=== PATIENT | male | born 1995 | race Caucasian/White ===

== ENCOUNTER 2022-05-28 19:27 | Emergency (ER) | payer SELFPAY ==
--- NOTE | ~2022-05-28 | XR_ITS ---
EXAMINATION: XR CHEST CLINICAL INFORMATION: Chest pain COMPARISON: None TECHNIQUE: Frontal view of the chest was obtained. FINDINGS: No significant abnormality is noted involving the heart, lungs, mediastinum, bony thorax or soft tissues. XR/XR chest 1V IMPRESSION: Unremarkable examination.
--- NOTE | 2022-05-28 19:39 | ECG_ITS ---
Test Reason : CHEST PAIN Blood Pressure : / mmHG Vent. Rate : 060 BPM Atrial Rate : 060 BPM P-R Int : 112 ms QRS Dur : 078 ms QT Int : 398 ms P-R-T Axes : 051 006 020 degrees QTc Int : 398 ms Normal sinus rhythm Normal ECG No previous ECGs available Referred By: Generic ED Physician Electronically Signed By:HERIBERTO VASQUEZ
[2022-05-28 20:51] VITALS: BP 136/84; PULSE 64; RESP 18; TEMP 37.2; O2SAT 98; BMI 21.8
[2022-05-28 22:43] LABS: MANUAL DIFF FLAG NO
[2022-05-28 22:45] LABS: Basophils Percent Auto 0.3 % (0-2); Eosinophils Percent Auto 0.2 % (0-4); Hematocrit 48.6 % (42.0-52.0); Imm Gran Abs Auto 0.04 X10*3/uL (0.00-0.03); Imm Gran Pct Auto 0.5 % (0.0-0.4); Lymphocytes Absolute Auto 1.7 X10*3/uL (1.2-4.9); Mean Corpuscular HGB Conc 32.9 g/dl (31.0-36.0); Mean Corpuscular Volume 85.1 fL (80.0-98.0); Mean Platelet Volume 10.5 fL (9.4-12.4); Monocytes Absolute Auto 0.6 X10*3/uL (0.1-1.2); Monocytes Percent Auto 6.5 % (2-11); Neutrophils Absolute Auto 6.3 x10*3/uL (2.0-8.3); Neutrophils Percent Auto 72.5 % (45-73); Platelet Count 247 X10*3/uL (160-400); Red Blood Count 5.71 X10*6/uL (4.60-5.80); Red Cell Distribution Width 12.7 % (11.0-16.0); White Blood Count 8.6 X10*3/uL (4.8-10.8)
[2022-05-28 22:57] LABS: Anion Gap 16 (12-20); Blood Urea Nitrogen 17 mg/dL (9-16); Calcium 10.3 mg/dL (8.4-10.2); Carbon Dioxide 27 mmol/L (22-29); Chloride 103 mmol/L (96-108); Creatinine Clr Calc Pharmacy 104.8; Estimated Glomerular Filt Rate > 60; Glucose Random 102 mg/dL (60-115); Potassium 4.3 mmol/L (3.3-5.1); Sodium 142 mmol/L (135-145)
[2022-05-28 23:03] LABS: COVID-19 Test Negative (Negative)
[2022-05-28 23:05] LABS: Troponin-I High Sensitivity < 3.5 ng/L (<3.5-35.0)
--- NOTE | 2022-05-29 00:40 | ED.CHESTPAIN ---
HPI - Chest Pain General Chief Complaint: Chest Pain Stated Complaint: chest pain, left arm tingling Time Seen by Provider: 05/29/22 00:39 Source: patient Mode of arrival: ambulatory Limitations: no limitations History of Present Illness HPI narrative: 26 y/o male with no pertinent PMHx presenting with left-sided anterior chest pain x 1 day. The patient reports that he woke up this morning with point tenderness in the area of his left chest. He tells me that he was partying over the weekend and was smoking a lot, so he was concerned that this may be associated. Smokes alot of vapes . He denies any difficulty breathing, cough, chest tightness. No history of asthma. He states that the pain is mostly improved at this time. Denies any recent sick contacts. No recent heavy lifting or injuries to the area. Denies any additional medical complaints at this time including abdominal pain, nausea, vomiting, dizziness, headache, back pain. No hx of sudden cardiac in family or significant cardiac hx Related Data Allergies Allergy/AdvReac Type Severity Reaction Status Date / Time amoxicillin Allergy Intermediate Shortness Verified 05/28/22 20:50 of Breath Review of Systems Review of Systems: Constitutional : No Weight loss, No Fever, No Chills, No Fatigue, No Malaise ENT/Mouth : No sore throat, No Rhinorrhea Eyes: No Eye Pain, No Swelling, No Redness Cardiovascular : + Chest Pain, No SOB, No Dyspnea on Exertion, No Orthopnea, No Edema, No Palpitations Respiratory : No Cough, No Sputum, No Wheezing Gastrointestinal : No Nausea, No Vomiting, No Diarrhea, No Constipation, No abdominal Pain, No Hematochezia, No Melena Genitourinary : No Dysuria, No Urinary Frequency, No Hematuria, Musculoskeletal : No joint pain, No Myalgias, No Joint Swelling Skin : No Skin Lesions, No rash Neuro : No Weakness, No Numbness, No Dizziness, No Headache Psych : No Anxiety/Panic, No Depression All other systems reviewed and are negative Yes all other systems are reviewed and are negative [facility] Past Medical History Attestation statement: The following information was validated with the patient. Source: old records reviewed and nursing notes reviewed Physical Exam Vital Signs: Vital Signs: Last Vital Signs Temp 98.9 F 05/28/22 20:51 Pulse 64 05/28/22 20:51 Resp 18 05/28/22 20:51 BP 136/84 05/28/22 20:51 Pulse Ox 98 05/28/22 20:51 O2 Del Method 05/28/22 20:51 BMI result Body Mass Index 21.8 vss Appearance: Alert.? Oriented X3.? No acute distress.?Patient appears well. Head: Normocephalic, atraumatic, no step-offs or deformities Eyes: Pupils equal, round and reactive to light.? Neck: Normal inspection.? Neck supple.? CVS: Normal heart rate and rhythm.? Pulses normal.? Respiratory: No respiratory distress.? Breath sounds normal.? Abdomen: Soft and nontender.? Skin: Skin warm and dry.? Normal skin color.? Normal skin turgor.? Extremities: No lower extremity edema.? No calf ttp, negative Abdirizak bilaterally. 5/5 strength to bilateral upper and lower extremities Neuro: Oriented X 3.? No motor deficit.? No sensory deficit. Course Reevaluation(s) Reevaluation #1: CBC within normal limits. Chemistry with no acute findings. Troponin negative, EKG nonischemic. Chest x-ray within normal limits. COVID negative. D-dimer pending at this time. I suspect patient will be discharged home with Cardiology and PCP follow-up. Patient appears well and in no acute distress. Tells me that at this time is pain has subsided. Time: 00:47 Reevaluation #2: D-dimer negative, unlikely PE. At this time patient will be discharged home advised to return with new or worsening symptoms, advised to follow-up with PCP and Cardiology. This time I feel comfortable discharge home with prompt PCP and cardiology follow-up, educated on worrisome signs and symptoms and when to return. Time: 01:19 MDM - Chest Pain MDM Narrative Medical decision making narrative: 0040 26-year-old male presents to the emergency department complaints of left-sided anterior chest wall pain, worse with deep inspiration times 1 day. Physical examination benign. Patient without risk factors for PE, low suspicion for PE. However will obtain D-dimer. Unlikely ACS again patient without risk factors HEART score 0. Likely noncardiac related chest pain or anxiety.. Plan basic labs, EKG, chest x-ray, troponin, D-dimer. Medical Records Data Attestation: I reviewed the patient's medical records. Lab Data Attestation: I reviewed the patient's lab results. Result diagrams: 05/28/22 22:26 05/28/22 22:27 Labs: Lab Results 05/28/22 05/28/22 05/28/22 Range/Units 22:26 22:26 22:26 WBC 8.6 (4.8-10.8) X10*3/uL RBC 5.71 (4.60-5.80) X10*6/uL Hgb 16.0 (14.0-18.0) g/dl Hct 48.6 (42.0-52.0) % MCV 85.1 (80.0-98.0) fL MCH 28.0 (27.0-33.0) pg MCHC 32.9 (31.0-36.0) g/dl RDW 12.7 (11.0-16.0) % Plt Count 247 (160-400) X10*3/uL MPV 10.5 (9.4-12.4) fL Immature Gran % (Auto) 0.5 H (0.0-0.4) % Neut % (Auto) 72.5 (45-73) % Lymph % (Auto) 20.0 (20-40) % [place] % (Auto) 6.5 (2-11) % Eos % (Auto) 0.2 (0-4) % Baso % (Auto) 0.3 (0-2) % Lymph # (Auto) 1.7 (1.2-4.9) X10*3/uL [place] # (Auto) 0.6 (0.1-1.2) X10*3/uL Eos # (Auto) 0.0 (0.0-0.4) X10*3/uL Baso # (Auto) 0.0 (0.0-0.2) X10*3/uL Abs Immat Gran (auto) 0.04 H (0.00-0.03) X10*3/uL Absolute Neuts (auto) 6.3 (2.0-8.3) x10*3/uL Absolute Nucleated RBC 0.000 (0.0-0.012) X10*3/uL Nucleated RBC % (auto) 0.0 (0.0-0.2) /100WBC D-Dimer High Sensitivty NG/ML Sodium (135-145) mmol/L Potassium (3.3-5.1) mmol/L Chloride (96-108) mmol/L Carbon Dioxide (22-29) mmol/L Anion Gap (12-20) BUN (9-16) mg/dL Creatinine (0.5-1.4) mg/dL Estim Creat Clear Calc Estimated GFR Random Glucose (60-115) mg/dL Calcium (8.4-10.2) mg/dL Troponin I High Sens < 3.5 (<3.5-35.0) ng/L COVID-19 ([place]) Negative (Negative) COVID-19 Clin Com See Note 05/28/22 05/29/22 Range/Units 22:27 00:57 WBC (4.8-10.8) X10*3/uL RBC (4.60-5.80) X10*6/uL Hgb (14.0-18.0) g/dl Hct (42.0-52.0) % MCV (80.0-98.0) fL MCH (27.0-33.0) pg MCHC (31.0-36.0) g/dl RDW (11.0-16.0) % Plt Count (160-400) X10*3/uL MPV (9.4-12.4) fL Immature Gran % (Auto) (0.0-0.4) % Neut % (Auto) (45-73) % Lymph % (Auto) (20-40) % [place] % (Auto) (2-11) % Eos % (Auto) (0-4) % Baso % (Auto) (0-2) % Lymph # (Auto) (1.2-4.9) X10*3/uL [place] # (Auto) (0.1-1.2) X10*3/uL Eos # (Auto) (0.0-0.4) X10*3/uL Baso # (Auto) (0.0-0.2) X10*3/uL Abs Immat Gran (auto) (0.00-0.03) X10*3/uL Absolute Neuts (auto) (2.0-8.3) x10*3/uL Absolute Nucleated RBC (0.0-0.012) X10*3/uL Nucleated RBC % (auto) (0.0-0.2) /100WBC D-Dimer High Sensitivty < 150 NG/ML Sodium 142 (135-145) mmol/L Potassium 4.3 (3.3-5.1) mmol/L Chloride 103 (96-108) mmol/L Carbon Dioxide 27 (22-29) mmol/L Anion Gap 16 (12-20) BUN 17 H (9-16) mg/dL Creatinine 1.00 (0.5-1.4) mg/dL Estim Creat Clear Calc 104.8 Estimated GFR > 60 Random Glucose 102 (60-115) mg/dL Calcium 10.3 H (8.4-10.2) mg/dL Troponin I High Sens (<3.5-35.0) ng/L COVID-19 ([place]) (Negative) COVID-19 Clin Com ECG Data ECG #1: Attestation: I personally reviewed and interpreted this ECG as follows: ECG interpretation date: 05/29/22 ECG interpretation time: 00:54 Prior ECG tracings: not available for review Interpretation: Ventricular rate of 60, SC normal, QRS normal, QT/QTC normal. EKG with normal sinus rhythm no ST elevations or inversions concerning for ischemia. No previous to compare with Critical Care Time Critical Care Time Critical Care Time: No Discharge Plan Discharge Clinical Impression: Chest pain Patient Disposition: Home, Self-Care Instructions: Chest Pain (ED) Additional Instructions: Take your medications as prescribed. If you were prescribed antibiotics today, it is important that you take your medication to their entirety, do not skip any doses, do not finish them early. Follow-up with your primary care provider this week. Follow-up with cardiology if pain continues. Return to the emergency department with new or worsening symptoms. Such as fevers, chills, chest pain, shortness of breath, nausea, vomiting, dizziness, headache, vision changes, lethargy In case of emergency call 911 Vapes are bad for you, try to stop using them! FINDINGS: No significant abnormality is noted involving the heart, lungs, mediastinum, bony thorax or soft tissues. XR/XR chest 1V IMPRESSION: Unremarkable examination. Referrals: Physician,None [Primary Care Provider] - 2 days Casimiro Allen MD [Physician] - 2 weeks Stand Alone Forms: Work/School Release
[2022-05-29 01:14] LABS: D Dimer High Sensitivity < 150 NG/ML
[2022-05-29 01:15] VITALS: BP 121/66; PULSE 57; RESP 15; TEMP 37.1; O2SAT 98
[2022-05-29] MEDS: Ketorolac Tromethamine 15 MG/ML VIAL 30 MG IM (01:22)
== END 2022-05-29 01:34 | disposition home or self-care (01) ==
PROVIDERS: Physician Assistant; Emergency Provider Emergency Medicine
DX: R07.89 Other chest pain (principal); F12.90 Cannabis use, unspecified, uncomplicated; Z20.822 Contact with and (suspected) exposure to COVID-19; Z79.899 Other long term (current) drug therapy
CPT/HCPCS: 36415; 71045; 80048; 84484; 85025; 85379; 87635; 93005; 96372; 99284; 99285; J1885

== ENCOUNTER 2023-04-03 18:13 | Emergency (ER) | payer BC, SELFPAY ==
[2023-04-03 18:17] VITALS: BP 121/75; PULSE 64; RESP 18; TEMP 36.9; O2SAT 98; BMI 22.7
--- NOTE | 2023-04-03 18:17 | ED.DENTAL ---
HPI - Dental/Oral General Chief complaint: Dental/Oral Stated complaint: Right side tooth pain Time Seen by Provider: 04/03/23 18:22 Source: patient Mode of arrival: ambulatory Limitations: no limitations History of Present Illness HPI Narrative: 27 yo male presents to the ER for evaluation of right lower dental pain for the last 3 days. He has a history of a broken tooth and that is the one that is hurting him. Pain is 8/10. Minimal relief with tylenol and ibuprofen. He reports pain with eating and chewing. No neck swelling or facial swelling. Able to open and close the mouth. Does not have a dentist. MD Complaint: tooth pain Location: Tooth # (29) Onset (ago): day(s) (3) Duration: worsening Severity: severe Severity scale (1-10): 8 Relieving factors: nothing Exacerbating factors: chewing Context: poor dental care Associated symptoms: gum swelling Treatment prior to arrival: oral analgesic Related Data Previous Rx's Medication Instructions Recorded chlorhexidine gluconate 0.12 % 15 ml buccal BID #120 mL 04/03/23 mouthwash clindamycin HCl 300 mg capsule 300 mg PO Q8H 7 days #21 caps 04/03/23 ibuprofen 600 mg tablet 600 mg PO Q8H PRN pain #30 tabs 04/03/23 tramadol 50 mg tablet 50 mg PO Q8H PRN severe pain 04/03/23 (scale score 7-10) #9 tabs Allergies Allergy/AdvReac Type Severity Reaction Status Date / Time amoxicillin Allergy Intermediate Shortness Verified 05/28/22 20:50 of Breath Review of Systems Review of Systems: Yes all other systems are reviewed and are negative Physical Exam Vital Signs: Vital Signs: Last Vital Signs Temp 98.5 F 04/03/23 18:17 Pulse 64 04/03/23 18:17 Resp 18 04/03/23 18:17 BP 121/75 04/03/23 18:17 Pulse Ox 98 04/03/23 18:17 O2 Del Method Room Air 04/03/23 18:17 BMI result Body Mass Index 22.7 Appearance: Alert. Oriented X3. No acute distress. HEENT: normal external inspection, no facial swelling. no trismus. poor dentition. right lower molar is cracked w/ exposed root, tender to palpation, associated gingival swelling, redness and tenderness without fluctuance. CVS: Normal heart rate and rhythm. Pulses normal. Respiratory: No respiratory distress. Skin: Skin warm and dry. Normal skin color. Normal skin turgor. No rashes. Extremities: normal inspection x4. Neuro: Oriented X 3. grossly normal, nonfocal. Medical Decision Making Medical Decision Making [facility] Narrative: 27 yo male presenting with right lower molar pain x3 days. tooth is cracked and decaying. associated gingival inflammation without evidence of abscess at this time. no trismus or anterior neck swelling to suggest a deeper infection. will plan to start abx and pain control. list of emergency dentists provided. importance of dental follow up stressed and return precautions were discussed. stable for d/c home. Differential Diagnosis Differential Diagnoses: The differential diagnosis associated with the presentation includes dental trauma, dental abscess, dental decay, dental caries Independent Historian Clinical information obtained from an independent historian. History obtained from or confirmed by: Parent External Record Review External record reviewed: Outpatient record and Prior outpatient labs Tests considered The following testing was considered but not selected: considered CT scan of the facial bones to assess for dental abscess Prescription Management I considered prescription management with: Pain Medication and Antibiotic Chronic Conditions Patient?s care impacted by: Other (poor dentition, dental decay ) Social Determinants Patient?s care significantly limited by Social Determinants of Health including: Other Social Determinant of Health (lack of access to dentist) Critical Care Time Critical Care Time Critical Care Time: No Discharge Plan Discharge Clinical Impression: Dental infection Patient Disposition: Home, Self-Care Instructions: Toothache (ED) Additional Instructions: Take the prescribed antibiotics as directed, complete the entire course and do not miss any doses Continue Tylenol 1000 mg every 6-8 hours Take the prescribed ibuprofen 600 mg every 6-8 horus as well - take with food Avoid food that is very hot or cold Take the prescribed tramadol for severe pain only - do not drive after taking this medication Follow up with a dentist as soon as possible If you develop new or worsening symptoms call 911 or come back to the ER for further evaluation. Prescriptions: New clindamycin HCl 300 mg capsule 300 mg PO Q8H 7 Days Qty: 21 0RF ibuprofen 600 mg tablet 600 mg PO Q8H PRN (Reason: pain) Qty: 30 0RF tramadol 50 mg tablet 50 mg PO Q8H PRN (Reason: severe pain (scale score 7-10)) Qty: 9 0RF chlorhexidine gluconate 0.12 % mouthwash 15 ml buccal BID Qty: 120 0RF Stand Alone Forms: Work/School Release
== END 2023-04-03 18:29 | disposition home or self-care (01) ==
LOC: HO.ED 18:27
PROVIDERS: Emergency Provider Emergency Medicine
DX: K04.7 Periapical abscess without sinus (principal)
CPT/HCPCS: 99282; 99283